=== PATIENT | male | born 1960 | race Caucasian/White ===

== ENCOUNTER 2021-08-21 17:07 | Emergency (ER) | payer MEDICAID, OTHER ==
[~2021-08-21] VITALS: Ht 180.3 cm; Wt 85.5 kg
[2021-08-21] MEDS ORDERED: IBUP200T46 PO (17:15)
[2021-08-21] MEDS ORDERED: SILVER NITRATE APPLICATOR TOP ONE (17:50)
[2021-08-21] MEDS ORDERED: OXYMETAZOLINE 0.05% NASAL SPRAY (AFRIN) ONE (17:50)
[2021-08-21 19:29] VITALS: BP 146/88
[2021-08-22] MEDS ORDERED: AMOX875T2 PO (20:15)
== END 2021-08-21 19:30 | disposition home or self-care (01) ==
LOC: M ED 17:07
DX: R04.0 Epistaxis (principal)

== ENCOUNTER 2021-08-22 17:37 | Emergency (ER) | payer OTHER ==
[~2021-08-22] VITALS: Ht 180.3 cm; Wt 84.1 kg
[~2021-08-22 17:37] MED LIST: IBUP200T46 PO
[2021-08-22 20:15] VITALS: BP 142/86
[2021-08-22] MEDS ORDERED: AMOX875T2 PO (20:15)
== END 2021-08-22 20:22 | disposition home or self-care (01) ==
LOC: M ED 17:37
DX: R04.0 Epistaxis (principal); F17.210 Nicotine dependence, cigarettes, uncomplicated

== ENCOUNTER → 2021-09-03 | Outpatient (REF) | payer OTHER ==
[~2021-09-03] MED LIST changes: +AMOX875T2 PO
[2021-09-03 13:00] LABS: BASO # 0.1 10^3/uL (0.0-0.2); BASO % 0.5 % (0.0-1.0); EOS # 0.4 10^3/uL (0.0-0.5); EOS % 3.3 % (0.0-3.0); HEMATOCRIT 40.9 % (42.0-52.0); HEMOGLOBIN 13.4 g/dl (13.5-17.5); LYMPH # 1.7 10^3/uL (1.5-5.0); LYMPH % 15.6 % (24.0-44.0); MEAN CORPUSCULAR HEMOGLOBIN 29.1 pg (27.0-33.0); MEAN CORPUSCULAR HGB CONC 32.8 g/dl (32.0-36.5); MEAN CORPUSCULAR VOLUME 88.9 fl (80.0-96.0); MONO # 0.9 10^3/uL (0.0-0.8); NEUTROPHILS % 72.2 % (36.0-66.0); PLATELET COUNT, AUTOMATED 517 10^3/uL (150-450); WHITE BLOOD COUNT 11.1 10^3/uL (4.0-10.0)
[2021-09-03 13:07] LABS: ALBUMIN 2.9 GM/DL (3.2-5.2); ALT/SGPT 26 U/L (12-78); BILIRUBIN,TOTAL 0.2 MG/DL (0.2-1.0); BLOOD UREA NITROGEN 10 MG/DL (7-18); CALCIUM LEVEL 9.4 MG/DL (8.8-10.2); CARBON DIOXIDE LEVEL 28 MEQ/L (21-32); CHLORIDE LEVEL 99 MEQ/L (98-107); CHOLESTEROL LEVEL 194 MG/DL (<200); CHOLESTEROL RISK RATIO 5.705 (<5); CREATININE FOR GFR 0.74 MG/DL (0.70-1.30); GLOMERULAR FILTRATION RATE > 60.0 (>49); GLUCOSE, FASTING 104 MG/DL (70-100); HDL CHOLESTEROL 34 MG/DL (>40); LDL CHOLESTEROL 137 MG/DL (<100); MAGNESIUM LEVEL 2.5 MG/DL (1.8-2.4); NON-HDL-C 160 MG/DL; SODIUM LEVEL 134 MEQ/L (136-145); TOTAL PROTEIN 7.3 GM/DL (6.4-8.2); TRIGLYCERIDES LEVEL 116 MG/DL (<150)
== END ==
LOC: M SFHCADAM 09:33
PROVIDERS: ATTEND Physician Assistant
DX: M79.661 Pain in right lower leg (principal); R04.0 Epistaxis; F17.211 Nicotine dependence, cigarettes, in remission; Z12.5 Encounter for screening for malignant neoplasm of prostate; Z12.11 Encounter for screening for malignant neoplasm of colon; Z13.220 Encounter for screening for lipoid disorders

== ENCOUNTER → 2021-09-03 | Outpatient (CLI) | payer OTHER | LOC: M WHC 15:29 | PROVIDERS: ATTEND Physician Assistant | DX: M79.661 Pain in right lower leg (principal) ==

== ENCOUNTER 2021-10-05 19:08 | Inpatient (IN) | payer OTHER ==
[~2021-10-05] VITALS: Ht 182.9 cm; Wt 96.2 kg
[2021-10-05 19:47] LABS: BASO # 0.1 10^3/uL (0.0-0.2); BASO % 0.5 % (0.0-1.0); EOS # 0.6 10^3/uL (0.0-0.5); HEMATOCRIT 32.4 % (42.0-52.0); LYMPH # 1.5 10^3/uL (1.5-5.0); LYMPH % 9.8 % (24.0-44.0); MEAN CORPUSCULAR HEMOGLOBIN 27.3 pg (27.0-33.0); MEAN CORPUSCULAR VOLUME 80.4 fl (80.0-96.0); MONO # 1.1 10^3/uL (0.0-0.8); NEUTROPHILS # 11.8 10^3/uL (1.5-8.5); NEUTROPHILS % 78.2 % (36.0-66.0); PLATELET COUNT, AUTOMATED 707 10^3/uL (150-450); RED BLOOD COUNT 4.03 10^6/uL (4.30-6.10); WHITE BLOOD COUNT 15.1 10^3/uL (4.0-10.0)
[2021-10-05] MEDS ORDERED: hydrALAZINE 20MG/ML 1ML VIAL (J0360 PER 20MG) IV STA (20:07)
[2021-10-05 20:21] LABS: AMPHETAMINES LEVEL URINE NEGATIVE (NEGATIVE); BARBITURATES URINE NEGATIVE (NEGATIVE); BENZODIAZEPINES URINE NEGATIVE (NEGATIVE); CANNABINOIDS URINE NEGATIVE (NEGATIVE); COCAINE METABOLITE URINE NEGATIVE (NEGATIVE); METHADONE URINE NEGATIVE (NEGATIVE); OPIATES URINE NEGATIVE (NEGATIVE); PHENCYCLIDINE URINE NEGATIVE (NEGATIVE)
[2021-10-05 20:24] LABS: CK-MB VALUE MASS < 1.0 NG/ML (<3.6); CPK CREATINE PHOSPHOKINASE 14 U/L (39-308); MB/CK RELATIVE INDEX 7.14 (< OR =4)
[2021-10-05 20:30] LABS: ALBUMIN 2.1 GM/DL (3.2-5.2); ALT/SGPT 25 U/L (12-78); BILIRUBIN,DIRECT 0.2 MG/DL (0.0-0.2); BILIRUBIN,TOTAL 0.4 MG/DL (0.2-1.0); BLOOD UREA NITROGEN 36 MG/DL (7-18); CALCIUM LEVEL 9.2 MG/DL (8.8-10.2); CARBON DIOXIDE LEVEL 21 MEQ/L (21-32); CHLORIDE LEVEL 87 MEQ/L (98-107); CREATININE FOR GFR 2.64 MG/DL (0.70-1.30); ETHYL ALCOHOL (ETHANOL) < 0.003 % (0.000-0.010); GLOMERULAR FILTRATION RATE 26.5 (>49); GLUCOSE, FASTING 112 MG/DL (70-100); SALICYLATE LEVEL < 1.7 MG/DL (5.0-30.0); SODIUM LEVEL 123 MEQ/L (136-145); TOTAL PROTEIN 6.7 GM/DL (6.4-8.2)
[2021-10-05] MEDS ORDERED: LORazepam 2 MG/ML VIAL IV STA ×2 (21:42→22:38)
[2021-10-05] MEDS ORDERED: MIDAZOLAM INJ 2MG/2ML VIAL (J2250 PER 1MG) IV STA (22:20)
[2021-10-05 22:36] LABS: ACETAMINOPHEN LEVEL 13.7 UG/ML (0.0-30.0)
[2021-10-05] MEDS ORDERED: MIDAZOLAM INJ 2MG/2ML VIAL (J2250 PER 1MG) IV ONE ×2 (22:50)
[2021-10-05] MEDS ORDERED: NS 1,000 ML IV ONE (22:50)
[2021-10-06] VITALS (15 sets, daily range): BP systolic 132–182; BP diastolic 63–93
[2021-10-06] MEDS ORDERED: TIZA2TA PO (00:18)
[2021-10-06] MEDS ORDERED: NS 1,000 ML IV SCH ×2 (00:20→05:25)
[2021-10-06] MEDS ORDERED: HOME MED LIST COMPLETE! XX SCH (00:50)
[2021-10-06 00:57] LABS: FREE T4 1.57 NG/DL (0.76-1.46)
[2021-10-06 01:26] LABS: CREATININE FOR GFR 2.55 MG/DL (0.70-1.30); GLOMERULAR FILTRATION RATE 27.5 (>49); POTASSIUM SERUM 4.5 MEQ/L (3.5-5.1)
[2021-10-06] MEDS: PANTOPRAZOLE 40MG VIAL IV SCH ×2 (01:46→13:09)
[2021-10-06 04:03] LABS: CREATININE,RANDOM URINE 67.3 MG/DL
[2021-10-06 05:14] LABS: CALCIUM LEVEL 8.8 MG/DL (8.8-10.2); CREATININE FOR GFR 2.54 MG/DL (0.70-1.30); GLOMERULAR FILTRATION RATE 27.7 (>49); POTASSIUM SERUM 4.9 MEQ/L (3.5-5.1)
[2021-10-06] MEDS: HEPARIN SOD (PORCINE) 5000UNITS/ML 1ML VIAL/SYRINGE SC SCH ×3 (05:38→22:00)
[2021-10-06 10:52] LABS: URIC ACID 4.7 MG/DL (3.5-7.2)
[2021-10-06] MEDS: NS 1,000 ML IV SCH ×2 (13:09→23:23)
[2021-10-06 14:24] LABS: ALBUMIN 1.9 GM/DL (3.2-5.2); CREATININE FOR GFR 2.54 MG/DL (0.70-1.30); GLOMERULAR FILTRATION RATE 27.7 (>49); PHOSPHORUS LEVEL 4.5 MG/DL (2.5-4.9); POTASSIUM SERUM 5.1 MEQ/L (3.5-5.1)
[2021-10-06 14:47] LABS: APPEARANCE, URINE CLEAR (CLEAR); BACTERIA, URINE AUTO 1+ (NEGATIVE); BILIRUBIN, URINE AUTO NEGATIVE (NEGATIVE); BLOOD, URINE BLOOD 2+ (NEGATIVE); COLOR, URINE YELLOW (YELLOW); GLUCOSE, URINE (UA) AUTO NEGATIVE (NEGATIVE); KETONE, URINE AUTO NEGATIVE (NEGATIVE); LEUKOCYTE ESTERASE, URINE AUTO TRACE (NEGATIVE); NITRITE, URINE AUTO NEGATIVE (NEGATIVE); PROTEIN, URINE AUTO 2+ mg/dL (NEGATIVE); RBC, URINE AUTO 17 /HPF (0-3); SPECIFIC GRAVITY URINE AUTO 1.013 (1.002-1.035); SQUAMOUS EPITHELIAL CELL UR AU 0 /HPF (0-6); UROBILINOGEN, URINE AUTO 0.2 mg/dL (0.0-2.0); WBC, URINE AUTO 9 /HPF (0-3)
[2021-10-06 15:03] LABS: TOTAL PROTEIN,RANDOM URINE 120.8 MG/DL (0.0-12.0)
[2021-10-07] VITALS (12 sets, daily range): BP systolic 136–174; BP diastolic 63–86
[2021-10-07] MEDS: PANTOPRAZOLE 40MG VIAL IV SCH ×3 (00:25→23:56)
[2021-10-07 05:11] LABS: BASO # 0.1 10^3/uL (0.0-0.2); BASO % 0.4 % (0.0-1.0); EOS # 0.2 10^3/uL (0.0-0.5); EOS % 1.2 % (0.0-3.0); HEMATOCRIT 25.6 % (42.0-52.0); LYMPH # 1.1 10^3/uL (1.5-5.0); LYMPH % 6.5 % (24.0-44.0); MEAN CORPUSCULAR HEMOGLOBIN 27.7 pg (27.0-33.0); MEAN CORPUSCULAR HGB CONC 33.2 g/dl (32.0-36.5); MEAN CORPUSCULAR VOLUME 83.4 fl (80.0-96.0); MONO # 1.2 10^3/uL (0.0-0.8); MONO % 7.2 % (2.0-8.0); NEUTROPHILS # 13.7 10^3/uL (1.5-8.5); NEUTROPHILS % 84.1 % (36.0-66.0); PLATELET COUNT, AUTOMATED 573 10^3/uL (150-450); RED BLOOD COUNT 3.07 10^6/uL (4.30-6.10); WHITE BLOOD COUNT 16.3 10^3/uL (4.0-10.0)
[2021-10-07 05:12] LABS: HEMOGLOBIN 8.5 g/dl (13.5-17.5)
[2021-10-07 05:29] LABS: CREATININE FOR GFR 2.45 MG/DL (0.70-1.30); GLOMERULAR FILTRATION RATE 28.9 (>49); MAGNESIUM LEVEL 1.7 MG/DL (1.8-2.4); PHOSPHORUS LEVEL 3.6 MG/DL (2.5-4.9)
[2021-10-07] MEDS: HEPARIN SOD (PORCINE) 5000UNITS/ML 1ML VIAL/SYRINGE SC SCH ×3 (05:48→21:36)
[2021-10-07] MEDS: NS 1,000 ML IV SCH (07:57)
[2021-10-07] MEDS ORDERED: TOLVAPTAN 15 MG TAB (SAMSCA) PO ONE ×2 (10:00→22:00)
[2021-10-07] MEDS: amLODIPine 5 MG TAB PO SCH (17:40)
[2021-10-07] MEDS: SUCRALFATE 1 GM TAB PO SCH ×2 (17:40→21:35)
[2021-10-07 19:40] LABS: CALCIUM LEVEL 8.5 MG/DL (8.8-10.2); CREATININE FOR GFR 2.56 MG/DL (0.70-1.30); FREE T3 1.5 PG/ML (2.2-4.0); FREE T4 1.18 NG/DL (0.76-1.46); GLOMERULAR FILTRATION RATE 27.4 (>49); POTASSIUM SERUM 5.1 MEQ/L (3.5-5.1); THYROID STIMULATING HORMONE 2.85 uIU/ML (0.358-3.740)
[2021-10-07] MEDS ORDERED: SODIUM CHLORIDE 1 GM TAB PO SCH (21:00)
[2021-10-07 23:19] LABS: CALCIUM LEVEL 8.5 MG/DL (8.8-10.2); CREATININE FOR GFR 2.44 MG/DL (0.70-1.30); POTASSIUM SERUM 4.8 MEQ/L (3.5-5.1)
[2021-10-08] VITALS (7 sets, daily range): BP systolic 141–169; BP diastolic 68–81
[2021-10-08] MEDS ORDERED: SODIUM CHLORIDE 1 GM TAB PO ONE
[2021-10-08 04:11] LABS: HEMATOCRIT 31.1 % (42.0-52.0); HEMOGLOBIN 10.1 g/dl (13.5-17.5); MEAN CORPUSCULAR HEMOGLOBIN 27.3 pg (27.0-33.0); MEAN CORPUSCULAR HGB CONC 32.5 g/dl (32.0-36.5); MEAN CORPUSCULAR VOLUME 84.1 fl (80.0-96.0); PLATELET COUNT, AUTOMATED 582 10^3/uL (150-450); WHITE BLOOD COUNT 19.4 10^3/uL (4.0-10.0)
[2021-10-08 04:27] LABS: CALCIUM LEVEL 8.3 MG/DL (8.8-10.2); CREATININE FOR GFR 2.52 MG/DL (0.70-1.30); GLOMERULAR FILTRATION RATE 27.9 (>49); POTASSIUM SERUM 5.1 MEQ/L (3.5-5.1)
[2021-10-08] MEDS: HEPARIN SOD (PORCINE) 5000UNITS/ML 1ML VIAL/SYRINGE SC SCH ×3 (05:23→20:42)
[2021-10-08] MEDS: SODIUM BICARBONATE 325 MG TAB PO SCH ×2 (08:24→20:41)
[2021-10-08] MEDS: SUCRALFATE 1 GM TAB PO SCH ×4 (08:24→20:41)
[2021-10-08] MEDS: amLODIPine 5 MG TAB PO SCH (08:24)
[2021-10-08] MEDS: SODIUM CHLORIDE 1 GM TAB PO SCH ×3 (08:25→20:41)
[2021-10-08 08:33] LABS: CALCIUM LEVEL 8.9 MG/DL (8.8-10.2); CREATININE FOR GFR 2.6 MG/DL (0.70-1.30); GLOMERULAR FILTRATION RATE 26.9 (>49); POTASSIUM SERUM 5.3 MEQ/L (3.5-5.1)
[2021-10-08] MEDS ORDERED: ASPIRIN ENTERIC 325 MG TAB PO SCH (09:00)
[2021-10-08 11:00] LABS: CHOLESTEROL RISK RATIO 7.333 (<5)
[2021-10-08] MEDS: PANTOPRAZOLE 40MG VIAL IV SCH (11:53)
[2021-10-08 12:27] LABS: C REACTIVE PROTEIN QUANTITATIV 14.5 MG/DL (0.00-0.30)
[2021-10-08] MEDS ORDERED: PATIROMER SORBITEX CALCIUM 8.4 GM POWDER PACKET (VELTASSA) PO ONE (14:00)
[2021-10-08 14:48] LABS: COMPLEMENT C3 142 MG/DL (90-180); COMPLEMENT C4 28 MG/DL (10-40)
[2021-10-08] MEDS ORDERED: TOLVAPTAN 15 MG TAB (SAMSCA) PO ONE (15:00)
[2021-10-08] MEDS ORDERED: MIDODRINE 5 MG TAB PO SCH (16:00)
[2021-10-08 17:24] LABS: CREATININE FOR GFR 2.68 MG/DL (0.70-1.30); POTASSIUM SERUM 4.5 MEQ/L (3.5-5.1)
[2021-10-08 19:08] LABS: FIBRINOGEN 741 MG/DL (268-480); INR 1.26; PROTHROMBIN TIME 16.2 SECONDS (12.7-14.5)
[2021-10-08 19:17] LABS: CALCIUM LEVEL 7.9 MG/DL (8.8-10.2); CREATININE FOR GFR 2.73 MG/DL (0.70-1.30); GLOMERULAR FILTRATION RATE 25.5 (>49); POTASSIUM SERUM 4.7 MEQ/L (3.5-5.1)
[2021-10-08] MEDS: POLYVINYL ALCOHOL OPHTH SOLN 15 ML(LIQUITEARS) OU SCH (20:41)
[2021-10-08] MEDS: ATORVASTATIN 20 MG TAB PO SCH (20:41)
[2021-10-08] MEDS: LIDOCAINE 5% (LIDODERM) PATCH TD SCH (20:41)
[2021-10-08 20:57] LABS: D-DIMER QUANT > 4000 ng/ml (<500)
[2021-10-09] VITALS (15 sets, daily range): BP systolic 126–153; BP diastolic 71–82
[2021-10-09] MEDS: PANTOPRAZOLE 40MG VIAL IV SCH ×2 (01:54→12:28)
[2021-10-09 05:37] LABS: CALCIUM LEVEL 8.4 MG/DL (8.8-10.2); CREATININE FOR GFR 2.65 MG/DL (0.70-1.30); GLOMERULAR FILTRATION RATE 26.4 (>49)
[2021-10-09 07:44] LABS: BASO # 0.1 10^3/uL (0.0-0.2); BASO % 0.5 % (0.0-1.0); EOS # 0.3 10^3/uL (0.0-0.5); EOS % 1.6 % (0.0-3.0); HEMATOCRIT 28.3 % (42.0-52.0); HEMOGLOBIN 9.4 g/dl (13.5-17.5); LYMPH # 1.1 10^3/uL (1.5-5.0); LYMPH % 6.4 % (24.0-44.0); MEAN CORPUSCULAR HEMOGLOBIN 27.2 pg (27.0-33.0); MEAN CORPUSCULAR HGB CONC 33.2 g/dl (32.0-36.5); MEAN CORPUSCULAR VOLUME 81.8 fl (80.0-96.0); MONO # 1.1 10^3/uL (0.0-0.8); MONO % 6.1 % (2.0-8.0); NEUTROPHILS % 84.8 % (36.0-66.0); PLATELET COUNT, AUTOMATED 633 10^3/uL (150-450); RED BLOOD COUNT 3.46 10^6/uL (4.30-6.10); WHITE BLOOD COUNT 17.6 10^3/uL (4.0-10.0)
[2021-10-09 08:03] LABS: INR 1.14
[2021-10-09 08:04] LABS: PARTIAL THROMBOPLASTIN TIME 36.3 SECONDS (25.9-37.0)
[2021-10-09 08:15] LABS: ERYTHROCYTE SEDIMENTATION RATE 70 mm/hr (0-20)
[2021-10-09 08:19] LABS: CALCIUM LEVEL 8.7 MG/DL (8.8-10.2); CREATININE FOR GFR 2.67 MG/DL (0.70-1.30); GLOMERULAR FILTRATION RATE 26.1 (>49)
[2021-10-09] MEDS ORDERED: LORazepam 2 MG/ML VIAL IV STA (08:39)
[2021-10-09] MEDS ORDERED: ASPIRIN 81 MG CHEW TABLET PO SCH (09:00)
[2021-10-09] MEDS: **NOTE PATIENT COMMENT** MISC XX SCH (09:00)
[2021-10-09] MEDS ORDERED: LIDOCAINE 1% MDV 20ML VIAL As Ordered ONE (09:24)
[2021-10-09] MEDS: SUCRALFATE 1 GM TAB PO SCH ×4 (11:24→20:24)
[2021-10-09] MEDS: POLYVINYL ALCOHOL OPHTH SOLN 15 ML(LIQUITEARS) OU SCH ×4 (11:24→20:25)
[2021-10-09] MEDS: SODIUM CHLORIDE 1 GM TAB PO SCH ×3 (11:24→20:23)
[2021-10-09] MEDS: TOLVAPTAN 15 MG TAB (SAMSCA) PO SCH (11:24)
[2021-10-09] MEDS: SODIUM BICARBONATE 325 MG TAB PO SCH ×2 (11:24→20:23)
[2021-10-09 16:48] LABS: CALCIUM LEVEL 8.5 MG/DL (8.8-10.2); CREATININE FOR GFR 2.75 MG/DL (0.70-1.30); GLOMERULAR FILTRATION RATE 25.3 (>49); POTASSIUM SERUM 4.4 MEQ/L (3.5-5.1)
[2021-10-09] MEDS ORDERED: HEPARIN SOD (PORCINE) 5000UNITS/ML 1ML VIAL/SYRINGE SQ SCH (20:00)
[2021-10-09] MEDS: LIDOCAINE 5% (LIDODERM) PATCH TD SCH (20:23)
[2021-10-09] MEDS: ATORVASTATIN 20 MG TAB PO SCH (20:24)
[2021-10-10] VITALS: BP 134/67
[2021-10-10] MEDS: PANTOPRAZOLE 40MG VIAL IV SCH ×2 (01:48→12:31)
[2021-10-10 04:00] VITALS: BP 131/70
[2021-10-10 05:09] LABS: CALCIUM LEVEL 8.2 MG/DL (8.8-10.2); CREATININE FOR GFR 2.84 MG/DL (0.70-1.30); GLOMERULAR FILTRATION RATE 24.3 (>49)
[2021-10-10] MEDS: HEPARIN SOD (PORCINE) 5000UNITS/ML 1ML VIAL/SYRINGE SQ SCH ×3 (06:00→22:15)
[2021-10-10 07:52] VITALS: BP 141/79
[2021-10-10] MEDS: **NOTE PATIENT COMMENT** MISC XX SCH (08:52)
[2021-10-10] MEDS: SODIUM BICARBONATE 325 MG TAB PO SCH ×2 (08:52→22:18)
[2021-10-10] MEDS: TOLVAPTAN 15 MG TAB (SAMSCA) PO SCH (08:52)
[2021-10-10] MEDS: SODIUM CHLORIDE 1 GM TAB PO SCH ×3 (08:52→22:17)
[2021-10-10] MEDS: SUCRALFATE 1 GM TAB PO SCH ×4 (08:53→22:18)
[2021-10-10] MEDS: POLYVINYL ALCOHOL OPHTH SOLN 15 ML(LIQUITEARS) OU SCH ×4 (08:54→22:14)
[2021-10-10] MEDS: ASPIRIN 81 MG CHEW TABLET PO SCH (09:41)
[2021-10-10 12:30] VITALS: BP 126/69
[2021-10-10] MEDS ORDERED: CETACAINE SPRAY 5GM As Ordered ONE ×2 (14:24→15:13)
[2021-10-10] MEDS ORDERED: LIDOCAINE VISCOUS 2% SOLN 15ML UDC As Ordered ONE (14:24)
[2021-10-10] MEDS ORDERED: MIDAZOLAM INJ 2MG/2ML VIAL (J2250 PER 1MG) As Ordered ONE ×2 (14:25→14:26)
[2021-10-10] MEDS ORDERED: NS 1,000 ML IV SCH (14:30)
[2021-10-10 15:47] VITALS: BP 118/57
[2021-10-10 22:00] VITALS: BP 131/80
[2021-10-10] MEDS: LIDOCAINE 5% (LIDODERM) PATCH TD SCH (22:14)
[2021-10-10] MEDS: ATORVASTATIN 20 MG TAB PO SCH (22:17)
[2021-10-11] MEDS: PANTOPRAZOLE 40MG VIAL IV SCH ×2 (01:48→12:56)
[2021-10-11] MEDS: HEPARIN SOD (PORCINE) 5000UNITS/ML 1ML VIAL/SYRINGE SQ SCH ×3 (06:27→21:29)
[2021-10-11 06:58] LABS: BASO # 0.1 10^3/uL (0.0-0.2); BASO % 0.5 % (0.0-1.0); EOS # 0.5 10^3/uL (0.0-0.5); EOS % 2.3 % (0.0-3.0); HEMATOCRIT 27.8 % (42.0-52.0); HEMOGLOBIN 9.2 g/dl (13.5-17.5); LYMPH # 1.1 10^3/uL (1.5-5.0); LYMPH % 5.5 % (24.0-44.0); MEAN CORPUSCULAR HEMOGLOBIN 27.2 pg (27.0-33.0); MEAN CORPUSCULAR HGB CONC 33.1 g/dl (32.0-36.5); MEAN CORPUSCULAR VOLUME 82.2 fl (80.0-96.0); MONO # 1.2 10^3/uL (0.0-0.8); NEUTROPHILS % 85.1 % (36.0-66.0); PLATELET COUNT, AUTOMATED 687 10^3/uL (150-450); RED BLOOD COUNT 3.38 10^6/uL (4.30-6.10)
[2021-10-11 07:19] LABS: ERYTHROCYTE SEDIMENTATION RATE 68 mm/hr (0-20)
[2021-10-11 07:25] LABS: C REACTIVE PROTEIN QUANTITATIV 10.1 MG/DL (0.00-0.30); CALCIUM LEVEL 7.6 MG/DL (8.8-10.2); CREATININE FOR GFR 3.33 MG/DL (0.70-1.30); GLOMERULAR FILTRATION RATE 20.2 (>49); POTASSIUM SERUM 4.5 MEQ/L (3.5-5.1)
[2021-10-11] MEDS ORDERED: LORazepam 2 MG/ML VIAL IV STA (08:23)
[2021-10-11] MEDS: TOLVAPTAN 15 MG TAB (SAMSCA) PO SCH ×2 (09:00→13:12)
[2021-10-11] MEDS: **NOTE PATIENT COMMENT** MISC XX SCH (09:00)
[2021-10-11] MEDS: SODIUM BICARBONATE 325 MG TAB PO SCH ×2 (12:10→21:30)
[2021-10-11] MEDS: SODIUM CHLORIDE 1 GM TAB PO SCH ×3 (12:10→21:30)
[2021-10-11] MEDS: ASPIRIN 81 MG CHEW TABLET PO SCH (12:11)
[2021-10-11] MEDS: SUCRALFATE 1 GM TAB PO SCH ×4 (12:11→21:29)
[2021-10-11] MEDS: POLYVINYL ALCOHOL OPHTH SOLN 15 ML(LIQUITEARS) OU SCH ×4 (12:11→21:30)
[2021-10-11 14:00] VITALS: BP 140/75
[2021-10-11 15:46] LABS: CREATININE FOR GFR 3.47 MG/DL (0.70-1.30); GLOMERULAR FILTRATION RATE 19.3 (>49); POTASSIUM SERUM 4.4 MEQ/L (3.5-5.1)
[2021-10-11 21:16] VITALS: BP 147/82
[2021-10-11] MEDS: ATORVASTATIN 20 MG TAB PO SCH (21:29)
[2021-10-11] MEDS: LIDOCAINE 5% (LIDODERM) PATCH TD SCH (21:30)
[2021-10-12] MEDS: PANTOPRAZOLE 40MG VIAL IV SCH ×2 (01:33→12:53)
[2021-10-12] MEDS: HEPARIN SOD (PORCINE) 5000UNITS/ML 1ML VIAL/SYRINGE SQ SCH ×3 (05:42→20:32)
[2021-10-12 06:00] VITALS: BP_SYST 110; BP_SYST 141; BP_DIAS 72; BP_DIAS 80
[2021-10-12 06:43] LABS: CALCIUM LEVEL 8.3 MG/DL (8.8-10.2); CREATININE FOR GFR 3.64 MG/DL (0.70-1.30); GLOMERULAR FILTRATION RATE 18.3 (>49)
[2021-10-12] MEDS: cefTRIAXone SOD 1 GM in D5W MINI-BAG PLUS 50 ML IV SCH (09:39)
[2021-10-12] MEDS: SUCRALFATE 1 GM TAB PO SCH ×4 (09:40→20:32)
[2021-10-12] MEDS: ASPIRIN 81 MG CHEW TABLET PO SCH (09:40)
[2021-10-12] MEDS: POLYVINYL ALCOHOL OPHTH SOLN 15 ML(LIQUITEARS) OU SCH ×4 (09:40→20:32)
[2021-10-12] MEDS: SODIUM CHLORIDE 1 GM TAB PO SCH (09:40)
[2021-10-12] MEDS: SODIUM BICARBONATE 325 MG TAB PO SCH ×2 (09:40→20:30)
[2021-10-12] MEDS: **NOTE PATIENT COMMENT** MISC XX SCH (09:41)
[2021-10-12] MEDS: TOLVAPTAN 15 MG TAB (SAMSCA) PO SCH (09:54)
[2021-10-12] MEDS: methylPREDNISolone 1,000 MG, VIAL MATE ADAPTER 1 EACH in NS 250 ML IV SCH (12:53)
[2021-10-12 14:00] VITALS: BP 156/77
[2021-10-12 15:43] VITALS: BP 144/79
[2021-10-12] MEDS: ATORVASTATIN 20 MG TAB PO SCH (20:32)
[2021-10-12] MEDS: LIDOCAINE 5% (LIDODERM) PATCH TD SCH (20:33)
[2021-10-12 22:00] VITALS: BP 144/84
[2021-10-13] MEDS: PANTOPRAZOLE 40MG VIAL IV SCH ×2 (00:38→13:51)
[2021-10-13] MEDS: HEPARIN SOD (PORCINE) 5000UNITS/ML 1ML VIAL/SYRINGE SQ SCH ×3 (05:21→21:39)
[2021-10-13 06:00] VITALS: BP 146/76
[2021-10-13] MEDS: SUCRALFATE 1 GM TAB PO SCH ×4 (07:30→20:27)
[2021-10-13] MEDS: **NOTE PATIENT COMMENT** MISC XX SCH (09:00)
[2021-10-13] MEDS: POLYVINYL ALCOHOL OPHTH SOLN 15 ML(LIQUITEARS) OU SCH ×4 (10:02→20:27)
[2021-10-13] MEDS: SODIUM BICARBONATE 325 MG TAB PO SCH ×2 (10:03→20:27)
[2021-10-13] MEDS: ASPIRIN 81 MG CHEW TABLET PO SCH (10:03)
[2021-10-13] MEDS: TOLVAPTAN 15 MG TAB (SAMSCA) PO SCH (10:03)
[2021-10-13] MEDS: cefTRIAXone SOD 1 GM in D5W MINI-BAG PLUS 50 ML IV SCH (10:03)
[2021-10-13] MEDS: methylPREDNISolone 1,000 MG, VIAL MATE ADAPTER 1 EACH in NS 250 ML IV SCH (13:52)
[2021-10-13 14:00] VITALS: BP 149/77
[2021-10-13] MEDS ORDERED: GI COCKTAIL 50ML BTL(HYOSCYAMINE/MAALOX/LIDOCAINE VISCOUS)(1:3:1) PO PRN (16:20)
[2021-10-13] MEDS ORDERED: GI COCKTAIL 50ML BTL(HYOSCYAMINE/MAALOX/LIDOCAINE VISCOUS)(1:3:1) PO ONE (17:00)
[2021-10-13 20:25] VITALS: BP 138/72
[2021-10-13] MEDS: ATORVASTATIN 20 MG TAB PO SCH (20:27)
[2021-10-13] MEDS: LIDOCAINE 5% (LIDODERM) PATCH TD SCH (20:27)
[2021-10-13 23:10] LABS: ANTI DS-DNA AB Negative (Negative); ANTI SMITH(Sm) AB <20 Units (<20); ANTINUCLEAR ANTIBODIES DIRECT Negative (Negative)
[2021-10-14] MEDS: PANTOPRAZOLE 40MG VIAL IV SCH ×2 (02:02→11:55)
[2021-10-14] MEDS: HEPARIN SOD (PORCINE) 5000UNITS/ML 1ML VIAL/SYRINGE SQ SCH ×3 (05:28→20:42)
[2021-10-14 06:24] VITALS: BP 148/84
[2021-10-14 06:37] LABS: CALCIUM LEVEL 8.6 MG/DL (8.8-10.2); CREATININE FOR GFR 4.13 MG/DL (0.70-1.30); GLOMERULAR FILTRATION RATE 15.8 (>49); MAGNESIUM LEVEL 2.6 MG/DL (1.8-2.4); PHOSPHORUS LEVEL 4.8 MG/DL (2.5-4.9); POTASSIUM SERUM 4.3 MEQ/L (3.5-5.1)
[2021-10-14] MEDS: TOLVAPTAN 15 MG TAB (SAMSCA) PO SCH (08:20)
[2021-10-14] MEDS: SODIUM BICARBONATE 325 MG TAB PO SCH ×2 (08:20→20:41)
[2021-10-14] MEDS: ASPIRIN 81 MG CHEW TABLET PO SCH (08:20)
[2021-10-14] MEDS: SUCRALFATE 1 GM TAB PO SCH ×4 (08:21→20:41)
[2021-10-14] MEDS: POLYVINYL ALCOHOL OPHTH SOLN 15 ML(LIQUITEARS) OU SCH ×4 (08:21→20:41)
[2021-10-14] MEDS: **NOTE PATIENT COMMENT** MISC XX SCH (08:31)
[2021-10-14 10:59] LABS: HEPATITIS B CORE ANTIBODY IGM NEGATIVE (NEGATIVE); HEPATITIS B SURFACE ANTIGEN NEGATIVE (NEGATIVE); HEPATITIS C VIRUS ABY INDEX 0.1 INDEX (<0.8); HIV 1&2 SCREEN CENTAUR NEGATIVE (NEGATIVE)
[2021-10-14] MEDS: methylPREDNISolone 1,000 MG, VIAL MATE ADAPTER 1 EACH in NS 250 ML IV SCH (11:54)
[2021-10-14 14:00] VITALS: BP 146/80
[2021-10-14] MEDS: ATORVASTATIN 20 MG TAB PO SCH (20:41)
[2021-10-14] MEDS: LIDOCAINE 5% (LIDODERM) PATCH TD SCH (20:42)
[2021-10-14 22:00] VITALS: BP 150/78
[2021-10-15] VITALS (14 sets, daily range): BP systolic 119–164; BP diastolic 60–84
[2021-10-15] MEDS: PANTOPRAZOLE 40MG VIAL IV SCH ×2 (01:16→12:41)
[2021-10-15] MEDS: HEPARIN SOD (PORCINE) 5000UNITS/ML 1ML VIAL/SYRINGE SQ SCH ×3 (06:21→20:26)
[2021-10-15 06:33] LABS: CALCIUM LEVEL 8.3 MG/DL (8.8-10.2); CREATININE FOR GFR 4.04 MG/DL (0.70-1.30); GLOMERULAR FILTRATION RATE 16.2 (>49); MAGNESIUM LEVEL 2.4 MG/DL (1.8-2.4); PHOSPHORUS LEVEL 5.1 MG/DL (2.5-4.9); POTASSIUM SERUM 4.2 MEQ/L (3.5-5.1)
[2021-10-15] MEDS ORDERED: diphenhydrAMINE 50MG/ML VIAL (J1200) IV PRN (07:01)
[2021-10-15] MEDS ORDERED: methylPREDNISolone 125MG 2ML VIAL IV PRN (07:01)
[2021-10-15] MEDS ORDERED: ALBUTEROL SULFATE 2.5 MG/0.5 ML INH NEB SOLN INH PRN (07:01)
[2021-10-15] MEDS ORDERED: EPINEPHrine INJ 1 MG/ML 1ML AMP IM PRN (07:01)
[2021-10-15] MEDS: POLYVINYL ALCOHOL OPHTH SOLN 15 ML(LIQUITEARS) OU SCH ×4 (08:31→20:25)
[2021-10-15] MEDS: SUCRALFATE 1 GM TAB PO SCH ×4 (08:31→20:25)
[2021-10-15] MEDS: ASPIRIN 81 MG CHEW TABLET PO SCH (08:31)
[2021-10-15] MEDS: **NOTE PATIENT COMMENT** MISC XX SCH (08:31)
[2021-10-15] MEDS: SODIUM BICARBONATE 325 MG TAB PO SCH ×2 (08:31→20:25)
[2021-10-15] MEDS ORDERED: predniSONE 20 MG TAB PO SCH (09:00)
[2021-10-15] MEDS ORDERED: TOLVAPTAN 15 MG TAB (SAMSCA) PO SCH (09:00)
[2021-10-15 10:22] LABS: HEMATOCRIT 25.7 % (42.0-52.0); HEMOGLOBIN 8.4 g/dl (13.5-17.5); MEAN CORPUSCULAR HEMOGLOBIN 27.3 pg (27.0-33.0); MEAN CORPUSCULAR HGB CONC 32.7 g/dl (32.0-36.5); MEAN CORPUSCULAR VOLUME 83.4 fl (80.0-96.0); PLATELET COUNT, AUTOMATED 814 10^3/uL (150-450); RED BLOOD COUNT 3.08 10^6/uL (4.30-6.10); WHITE BLOOD COUNT 12.1 10^3/uL (4.0-10.0)
[2021-10-15] MEDS ORDERED: diphenhydrAMINE 50MG/ML VIAL (J1200) IV ONE (10:30)
[2021-10-15] MEDS ORDERED: ACETAMINOPHEN TAB 650MG DOSE (2X325MG) PO ONE (10:30)
[2021-10-15] MEDS ORDERED: methylPREDNISolone 125MG 2ML VIAL IV ONE (10:30)
[2021-10-15] MEDS ORDERED: riTUXimab 1,000 MG in NS 900 ML IV ONE (11:00)
[2021-10-15] MEDS ORDERED: NS 1,000 ML IV SCH (11:00)
[2021-10-15 11:08] LABS: ANTI THROMBIN 3 ANTIGEN IMMUNO 87 % (72-124); ANTI THROMBIN 3 FUNCT ACTIVITY 90 % (75-135); PROTEIN C FUNCTIONAL ACTIVITY 132 % (73-180); PROTEIN S FUNCTIONAL ACTIVITY 68 % (63-140)
[2021-10-15] MEDS: ATOVAQUONE SUSP 750MG/5ML 210 ML BTL PO SCH (14:32)
[2021-10-15] MEDS: ATORVASTATIN 20 MG TAB PO SCH (20:25)
[2021-10-15] MEDS: LIDOCAINE 5% (LIDODERM) PATCH TD SCH (20:25)
[2021-10-16] MEDS: PANTOPRAZOLE 40MG VIAL IV SCH ×2 (01:58→12:56)
[2021-10-16 05:35] VITALS: BP 141/77
[2021-10-16] MEDS: HEPARIN SOD (PORCINE) 5000UNITS/ML 1ML VIAL/SYRINGE SQ SCH ×3 (05:57→20:42)
[2021-10-16 06:02] LABS: HEMATOCRIT 23.3 % (42.0-52.0); HEMOGLOBIN 7.6 g/dl (13.5-17.5); MEAN CORPUSCULAR HEMOGLOBIN 27.7 pg (27.0-33.0); MEAN CORPUSCULAR HGB CONC 32.6 g/dl (32.0-36.5); PLATELET COUNT, AUTOMATED 735 10^3/uL (150-450); RED BLOOD COUNT 2.74 10^6/uL (4.30-6.10); WHITE BLOOD COUNT 11.7 10^3/uL (4.0-10.0)
[2021-10-16 06:33] LABS: ALBUMIN 1.7 GM/DL (3.2-5.2); BILIRUBIN,TOTAL 0.6 MG/DL (0.2-1.0); CALCIUM LEVEL 7.9 MG/DL (8.8-10.2); CREATININE FOR GFR 3.76 MG/DL (0.70-1.30); GLOMERULAR FILTRATION RATE 17.6 (>49); MAGNESIUM LEVEL 2.2 MG/DL (1.8-2.4); PHOSPHORUS LEVEL 4.4 MG/DL (2.5-4.9); POTASSIUM SERUM 4.2 MEQ/L (3.5-5.1); TOTAL PROTEIN 5.4 GM/DL (6.4-8.2)
[2021-10-16] MEDS: SUCRALFATE 1 GM TAB PO SCH ×4 (09:07→20:41)
[2021-10-16] MEDS: predniSONE 20 MG TAB PO SCH (09:08)
[2021-10-16] MEDS: ATOVAQUONE SUSP 750MG/5ML 210 ML BTL PO SCH (09:08)
[2021-10-16] MEDS: SODIUM BICARBONATE 325 MG TAB PO SCH ×2 (09:08→20:41)
[2021-10-16] MEDS: ASPIRIN 81 MG CHEW TABLET PO SCH (09:08)
[2021-10-16] MEDS: POLYVINYL ALCOHOL OPHTH SOLN 15 ML(LIQUITEARS) OU SCH ×4 (09:09→20:42)
[2021-10-16] MEDS: **NOTE PATIENT COMMENT** MISC XX SCH (09:10)
[2021-10-16 10:08] LABS: DRVV SCREEN 50.1 SEC
[2021-10-16 10:17] LABS: PTT LUPUS TYPE ANTICOAG SCREEN 1.3 (0-1.2)
[2021-10-16 10:25] LABS: LUPUS CONFIRM RATIO 1.2
[2021-10-16 10:40] LABS: NORMALIZED RATIO 1.08 (0.00-1.20)
[2021-10-16 14:00] VITALS: BP 143/66
[2021-10-16] MEDS: ATORVASTATIN 20 MG TAB PO SCH (20:41)
[2021-10-16] MEDS: LIDOCAINE 5% (LIDODERM) PATCH TD SCH (20:42)
[2021-10-16 22:00] VITALS: BP 137/65
[2021-10-17] MEDS: PANTOPRAZOLE 40MG VIAL IV SCH ×2 (00:44→12:31)
[2021-10-17 06:00] VITALS: BP 142/76
[2021-10-17] MEDS: HEPARIN SOD (PORCINE) 5000UNITS/ML 1ML VIAL/SYRINGE SQ SCH ×2 (06:15→14:53)
[2021-10-17 06:28] LABS: MEAN CORPUSCULAR HEMOGLOBIN 26.7 pg (27.0-33.0); MEAN CORPUSCULAR VOLUME 83.3 fl (80.0-96.0); PLATELET COUNT, AUTOMATED 755 10^3/uL (150-450); WHITE BLOOD COUNT 12.6 10^3/uL (4.0-10.0)
[2021-10-17 07:03] LABS: ALBUMIN 1.8 GM/DL (3.2-5.2); BILIRUBIN,TOTAL 0.2 MG/DL (0.2-1.0); CALCIUM LEVEL 8.2 MG/DL (8.8-10.2); CREATININE FOR GFR 3.31 MG/DL (0.70-1.30); GLOMERULAR FILTRATION RATE 20.4 (>49); PHOSPHORUS LEVEL 3.6 MG/DL (2.5-4.9); POTASSIUM SERUM 4.2 MEQ/L (3.5-5.1); TOTAL PROTEIN 5.4 GM/DL (6.4-8.2)
[2021-10-17] MEDS: ATOVAQUONE SUSP 750MG/5ML 210 ML BTL PO SCH (08:12)
[2021-10-17] MEDS: ASPIRIN 81 MG CHEW TABLET PO SCH (08:12)
[2021-10-17] MEDS: SODIUM BICARBONATE 325 MG TAB PO SCH (08:12)
[2021-10-17] MEDS: SUCRALFATE 1 GM TAB PO SCH ×2 (08:12→12:31)
[2021-10-17] MEDS: predniSONE 20 MG TAB PO SCH (08:12)
[2021-10-17] MEDS: **NOTE PATIENT COMMENT** MISC XX SCH (08:13)
[2021-10-17] MEDS: POLYVINYL ALCOHOL OPHTH SOLN 15 ML(LIQUITEARS) OU SCH ×2 (08:13→12:31)
[2021-10-17] MEDS ORDERED: ASPI81CH8 PO (12:44)
[2021-10-17] MEDS ORDERED: SUCR1TA PO (12:44)
[2021-10-17] MEDS ORDERED: SODI325T9 PO (12:44)
[2021-10-17] MEDS ORDERED: POLYOPD OU (12:44)
[2021-10-17] MEDS ORDERED: ATOV5SUS PO (12:44)
[2021-10-17] MEDS ORDERED: PRED20TA PO (12:48)
[2021-10-17 14:00] VITALS: BP 160/88
[2021-10-23 14:18] LABS: ANTI DS-DNA AB NEGATIVE; PR3 ANTIPROTEINASE ANTIBODIES <3.5 U/mL
[2021-10-23 15:08] LABS: ARSENIC BLOOD 2 ug/L (0-9); LEAD BLOOD <1 ug/dL (0-4); MERCURY BLOOD <1.0 ug/L (0.0-14.9)
== END 2021-10-17 15:30 | disposition home or self-care (01) | DRG 52 ==
LOC: M ED 19:08 → EDBD 19:08 → M ED INP 10-06 00:17 → ENRESERV 10-06 00:35 → M ICU 10-06 01:33 → M PCU 10-07 15:40 → M MSPAV 10-10 15:49
PROVIDERS: ADMIT Internal Medicine; ATTEND Internal Medicine
PROC: B246ZZZ Ultrasonography of Right and Left Heart (ICD-10-PCS; 2021-10-08)
PROC: 0TB13ZX Excision of Left Kidney, Percutaneous Approach, Diagnostic (ICD-10-PCS; principal; 2021-10-09 12:00)
DX: G93.41 Metabolic encephalopathy (principal); I63.81 Other cerebral infarction due to occlusion or stenosis of small artery; N18.4 Chronic kidney disease, stage 4 (severe); N17.9 Acute kidney failure, unspecified; M30.0 Polyarteritis nodosa; E87.2 Acidosis; N12 Tubulo-interstitial nephritis, not specified as acute or chronic; E87.1 Hypo-osmolality and hyponatremia; E87.5 Hyperkalemia; F17.210 Nicotine dependence, cigarettes, uncomplicated; R31.9 Hematuria, unspecified; T39.315A Adverse effect of propionic acid derivatives, initial encounter; Z20.822 Contact with and (suspected) exposure to COVID-19; D63.1 Anemia in chronic kidney disease; I12.9 Hypertensive chronic kidney disease with stage 1 through stage 4 chronic kidney disease, or unspecified chronic kidney disease; D72.829 Elevated white blood cell count, unspecified; E86.0 Dehydration; Z79.899 Other long term (current) drug therapy; T42.8X5A Adverse effect of antiparkinsonism drugs and other central muscle-tone depressants, initial encounter; K29.70 Gastritis, unspecified, without bleeding; T38.0X5A Adverse effect of glucocorticoids and synthetic analogues, initial encounter

== ENCOUNTER → 2021-10-24 | Outpatient (REF) | payer OTHER ==
[~2021-10-24] MED LIST changes: +ASPI81CH8 PO; +ATOV5SUS PO; +POLYOPD OU; +PRED20TA PO; +SODI325T9 PO; +SUCR1TA PO; +TIZA2TA PO
[2021-10-24 14:04] LABS: PERCENT SATURATION 7.7 % (19.7-50.0)
[2021-10-24 14:16] LABS: FOLATE 7.8 NG/ML
[2021-10-25 18:09] LABS: FREE KAPPA LIGHT CHAINS SERUM 64.6 mg/L (3.3-19.4); FREE LAMBDA LIGHT CHAINS SERUM 47.4 mg/L (5.7-26.3); KAPPA/LAMBDA RATIO SERUM 1.36 (0.26-1.65)
== END ==
LOC: M SFHCADAM 11:06
PROVIDERS: ATTEND Physician Assistant
DX: N05.9 Unspecified nephritic syndrome with unspecified morphologic changes (principal); D75.839 Thrombocytosis, unspecified; D64.9 Anemia, unspecified

== ENCOUNTER 2021-10-31 09:18 | Outpatient (CLI) | payer OTHER ==
[~2021-10-31] VITALS: Ht 182.9 cm; Wt 96.2 kg
[~2021-10-31 09:18] MED LIST changes: +ACETAMINOPHEN TAB 650MG DOSE (2X325MG) PO ONE; +ALBUTEROL SULFATE 2.5 MG/0.5 ML INH NEB SOLN INH PRN; +EPINEPHrine INJ 1 MG/ML 1ML AMP IM PRN; +NS 1,000 ML IV SCH; +diphenhydrAMINE 50MG/ML VIAL (J1200) IV ONE; +diphenhydrAMINE 50MG/ML VIAL (J1200) IV PRN; +methylPREDNISolone 125MG 2ML VIAL IV ONE; +methylPREDNISolone 125MG 2ML VIAL IV PRN; +riTUXimab 1,000 MG in NS 900 ML IV ONE
[2021-10-31 09:25] VITALS: BP 164/91
[2021-10-31 12:00] VITALS: BP 178/92
[2021-10-31 13:00] VITALS: BP 158/86
[2021-10-31 14:30] VITALS: BP 155/90
== END 2021-10-31 14:30 | disposition home or self-care (01) ==
LOC: M INFU 09:18
PROVIDERS: ATTEND Internal Medicine Nephrology
DX: N05.9 Unspecified nephritic syndrome with unspecified morphologic changes (principal)
CPT/HCPCS: 96365; 96366; 96375; J2930; J9312

== ENCOUNTER 2021-11-14 09:18 | Outpatient (CLI) | payer OTHER ==
[~2021-11-14] VITALS: Ht 180.3 cm; Wt 173.4 kg
[2021-11-14 09:53] VITALS: BP 158/89
[2021-11-14 10:30] VITALS: BP 166/90
[2021-11-14 11:30] VITALS: BP 152/96
[2021-11-14 12:30] VITALS: BP 160/93
[2021-11-14 13:38] VITALS: BP 160/89
== END 2021-11-14 13:45 | disposition home or self-care (01) ==
LOC: M INFU 09:18
PROVIDERS: ATTEND Internal Medicine Nephrology
DX: N05.9 Unspecified nephritic syndrome with unspecified morphologic changes (principal)
CPT/HCPCS: 96365; 96366; 96375; J1200; J2930; J9312

== ENCOUNTER → 2022-02-11 | Outpatient (REF) | payer OTHER ==
[~2022-02-11] MED LIST changes: -ACETAMINOPHEN TAB 650MG DOSE (2X325MG) PO ONE; -ALBUTEROL SULFATE 2.5 MG/0.5 ML INH NEB SOLN INH PRN; -EPINEPHrine INJ 1 MG/ML 1ML AMP IM PRN; -NS 1,000 ML IV SCH; -diphenhydrAMINE 50MG/ML VIAL (J1200) IV ONE; -diphenhydrAMINE 50MG/ML VIAL (J1200) IV PRN; -methylPREDNISolone 125MG 2ML VIAL IV ONE; -methylPREDNISolone 125MG 2ML VIAL IV PRN; -riTUXimab 1,000 MG in NS 900 ML IV ONE
[2022-02-14 12:51] LABS: ALBUMIN % 58.3 % (55.8-66.1); ALPHA-1-GLOBULIN % 5.3 % (2.9-4.9); ALPHA-1-GLOBULINS 0.32 GM/DL (0.17-0.41); ALPHA-2-GLOBULINS 1.02 GM/DL (0.42-0.99); BETA-1-GLOBULINS 0.33 GM/DL (0.28-0.60); BETA-1-GLOBULINS % 5.5 % (4.7-7.2); BETA-2-GLOBULINS 0.34 GM/DL (0.19-0.55); BETA-2-GLOBULINS % 5.7 % (3.2-6.5); GAMMA GLOBULIN % 8.2 % (11.1-18.8); GAMMA GLOBULINS 0.49 GM/DL (0.65-1.58)
== END ==
LOC: M SFHCADAM 07:51
PROVIDERS: ATTEND Physician Assistant
DX: D89.89 Other specified disorders involving the immune mechanism, not elsewhere classified (principal)

== ENCOUNTER → 2022-05-08 | Outpatient (REF) | payer OTHER ==
[~2022-05-08] MED LIST changes: +EQL1CAP9 PO; +LOSA25TA13 PO; +PRED5TA PO; +SULF400T14 PO
[2022-05-08 18:11] LABS: CREATININE, URINE 81.6 MG/DL
[2022-05-08 18:27] LABS: MAU/CREAT RATIO 1802.6 MCG/MG (0.0-30.0)
== END ==
LOC: M LAB REF 17:08
PROVIDERS: ATTEND Internal Medicine Nephrology
DX: N18.9 Chronic kidney disease, unspecified (principal)

== ENCOUNTER 2022-05-19 07:23 | Outpatient (CLI) | payer OTHER ==
[~2022-05-19] VITALS: Ht 182.9 cm; Wt 78.0 kg
[2022-05-19] VITALS (7 sets, daily range): BP systolic 141–158; BP diastolic 82–88
[~2022-05-19 07:23] MED LIST changes: +ALBUTEROL SULFATE 2.5MG/0.5ML INH NEB SOLN INH PRN; +EPINEPHrine INJ 1 MG/ML 1ML AMP IM PRN; +diphenhydrAMINE 50MG/ML VIAL IV PRN; +methylPREDNISolone 125MG 2ML VIAL IV PRN
[2022-05-19] MEDS ORDERED: methylPREDNISolone 125MG 2ML VIAL IV ONE (07:30)
[2022-05-19] MEDS ORDERED: riTUXimab (INITIAL INFUSION) IV ONE ×2 (07:30)
[2022-05-19] MEDS ORDERED: NS 1,000 ML IV SCH (07:30)
[2022-05-19] MEDS ORDERED: diphenhydrAMINE 50MG/ML VIAL IV ONE (07:30)
== END 2022-05-19 12:30 | disposition home or self-care (01) ==
LOC: M INFU 07:23
PROVIDERS: ATTEND Internal Medicine Nephrology
DX: N01.7 Rapidly progressive nephritic syndrome with diffuse crescentic glomerulonephritis (principal)
CPT/HCPCS: 96413; 96415; J9312

== ENCOUNTER → 2022-09-16 | Outpatient (REF) | payer OTHER ==
[~2022-09-16] MED LIST changes: -ALBUTEROL SULFATE 2.5MG/0.5ML INH NEB SOLN INH PRN; +ARTIDRO4 OU; -EPINEPHrine INJ 1 MG/ML 1ML AMP IM PRN; -POLYOPD OU; -diphenhydrAMINE 50MG/ML VIAL IV PRN; -methylPREDNISolone 125MG 2ML VIAL IV PRN
[2022-09-16 13:41] LABS: BASO # 0.1 10^3/uL (0.0-0.2); BASO % 0.6 % (0.0-1.0); EOS # 0.2 10^3/uL (0.0-0.5); EOS % 1.5 % (0.0-3.0); HEMATOCRIT 43.4 % (42.0-52.0); LYMPH # 2.9 10^3/uL (1.5-5.0); LYMPH % 22.9 % (24.0-44.0); MEAN CORPUSCULAR HGB CONC 32.3 g/dl (32.0-36.5); MEAN CORPUSCULAR VOLUME 89.9 fl (80.0-96.0); MONO % 8.2 % (2.0-8.0); NEUTROPHILS # 8.4 10^3/uL (1.5-8.5); NEUTROPHILS % 66.3 % (36.0-66.0); PLATELET COUNT, AUTOMATED 427 10^3/uL (150-450); RED BLOOD COUNT 4.83 10^6/uL (4.30-6.10); WHITE BLOOD COUNT 12.7 10^3/uL (4.0-10.0)
[2022-09-16 14:11] LABS: HEMOGLOBIN A1c 5.8 % (4.0-6.0)
[2022-09-16 14:18] LABS: ALBUMIN 3.2 G/DL (3.2-5.2); BILIRUBIN,TOTAL 0.2 MG/DL (0.3-1.2); CALCIUM LEVEL 9.6 MG/DL (8.3-10.6); CHOLESTEROL RISK RATIO 7.16 (<5); CREATININE FOR GFR 1.47 MG/DL (0.70-1.30); FERRITIN 80.2 NG/ML (10.5-307.3); GLOMERULAR FILTRATION RATE 51.8 (>49); HDL CHOLESTEROL 39.9 MG/DL (>40); LDL CHOLESTEROL 200.9 MG/DL (<100); NON-HDL-C 246.1 MG/DL; POTASSIUM SERUM 4.9 MMOL/L (3.5-5.1); THYROID STIMULATING HORMONE 3.185 uIU/ML (0.55-4.78); TOTAL PROTEIN 6.2 G/DL (5.7-8.2)
[2022-09-16 14:19] LABS: FREE T4 1.11 NG/DL (0.89-1.76)
== END ==
LOC: M SFHCADAM 07:42
PROVIDERS: ATTEND Physician Assistant
DX: N05.9 Unspecified nephritic syndrome with unspecified morphologic changes (principal); D75.839 Thrombocytosis, unspecified; D64.9 Anemia, unspecified; E78.00 Pure hypercholesterolemia, unspecified; F17.211 Nicotine dependence, cigarettes, in remission; R73.01 Impaired fasting glucose; Z12.5 Encounter for screening for malignant neoplasm of prostate

== ENCOUNTER → 2022-09-23 | Outpatient (CLI) | payer OTHER | LOC: M RAD 09:01 | PROVIDERS: ATTEND Physician Assistant | DX: Z53.9 Procedure and treatment not carried out, unspecified reason (principal) ==

== ENCOUNTER → 2023-02-11 | Outpatient (REF) | payer OTHER ==
[2023-02-11 18:14] LABS: TOTAL PROTEIN,RANDOM URINE 121.8 MG/DL (0.0-14.0)
[2023-02-11 18:19] LABS: CREATININE,RANDOM URINE 42.7 MG/DL
== END ==
LOC: M LAB REF 17:10
PROVIDERS: ATTEND Internal Medicine Nephrology
DX: R80.9 Proteinuria, unspecified (principal)

== ENCOUNTER → 2023-03-26 | Outpatient (REF) | payer OTHER ==
[2023-03-26 14:54] LABS: ALBUMIN 3.5 G/DL (3.2-5.2); BILIRUBIN,TOTAL 0.3 MG/DL (0.3-1.2); CALCIUM LEVEL 9.6 MG/DL (8.3-10.6); CHOLESTEROL RISK RATIO 4.12 (<5); CREATININE FOR GFR 1.34 MG/DL (0.70-1.30); GLOMERULAR FILTRATION RATE 57.7 (>49); HDL CHOLESTEROL 39.5 MG/DL (>40); LDL CHOLESTEROL 89.5 MG/DL (<100); NON-HDL-C 123.5 MG/DL; POTASSIUM SERUM 5.1 MMOL/L (3.5-5.1); TOTAL PROTEIN 6.5 G/DL (5.7-8.2)
== END ==
LOC: M SFHCADAM 08:20
PROVIDERS: ATTEND Physician Assistant
DX: N05.9 Unspecified nephritic syndrome with unspecified morphologic changes (principal); F17.210 Nicotine dependence, cigarettes, uncomplicated; I63.9 Cerebral infarction, unspecified; E78.00 Pure hypercholesterolemia, unspecified

== ENCOUNTER → 2023-05-21 | Outpatient (CLI) | payer OTHER | LOC: M RAD 12:57 | PROVIDERS: ATTEND Physician Assistant | DX: Z87.891 Personal history of nicotine dependence (principal) ==

== ENCOUNTER → 2023-10-01 | Outpatient (REF) | payer OTHER, MEDICAID ==
[2023-10-01 13:59] LABS: HEMATOCRIT 45.1 % (42.0-52.0); HEMOGLOBIN 14.8 g/dl (13.5-17.5); MEAN CORPUSCULAR HEMOGLOBIN 29.4 pg (27.0-33.0); MEAN CORPUSCULAR HGB CONC 32.8 g/dl (32.0-36.5); MEAN CORPUSCULAR VOLUME 89.5 fl (80.0-96.0); PLATELET COUNT, AUTOMATED 316 10^3/uL (150-450); RED BLOOD COUNT 5.04 10^6/uL (4.30-6.10); WHITE BLOOD COUNT 10.1 10^3/uL (4.0-10.0)
[2023-10-01 14:18] LABS: ALBUMIN 3.5 G/DL (3.2-5.2); BILIRUBIN,TOTAL 0.3 MG/DL (0.3-1.2); CALCIUM LEVEL 9.1 MG/DL (8.3-10.6); POTASSIUM SERUM 4.8 MMOL/L (3.5-5.1); PSA SCREENING 0.79 NG/ML (< 4.00); TOTAL PROTEIN 6.5 G/DL (5.7-8.2)
[2023-10-01 14:31] LABS: HEMOGLOBIN A1c 5.6 % (4.0-6.0)
[2023-10-02 12:33] LABS: CREATININE FOR GFR 1.57 MG/DL (0.70-1.30); GLOMERULAR FILTRATION RATE 47.9 (>49)
== END ==
LOC: M SFHCADAM 08:31
PROVIDERS: ATTEND Physician Assistant
DX: I10 Essential (primary) hypertension (principal); N05.9 Unspecified nephritic syndrome with unspecified morphologic changes; E78.00 Pure hypercholesterolemia, unspecified; F17.210 Nicotine dependence, cigarettes, uncomplicated; Z12.5 Encounter for screening for malignant neoplasm of prostate; R73.03 Prediabetes

== ENCOUNTER → 2023-11-16 | Outpatient (REF) | payer OTHER, MEDICAID ==
[2023-11-16 17:49] LABS: TOTAL PROTEIN,RANDOM URINE 74.8 MG/DL (0.0-14.0)
[2023-11-16 17:54] LABS: CREATININE,RANDOM URINE 72.5 MG/DL
== END ==
LOC: M LAB REF 16:51
PROVIDERS: ATTEND Internal Medicine Nephrology
DX: N01.7 Rapidly progressive nephritic syndrome with diffuse crescentic glomerulonephritis (principal)

== ENCOUNTER → 2024-03-29 | Outpatient (REF) | payer OTHER, MEDICAID ==
[2024-03-29 14:51] LABS: BASO # 0.1 10^3/uL (0.0-0.2); BASO % 0.7 % (0.0-1.0); EOS # 0.3 10^3/uL (0.0-0.5); EOS % 2.2 % (0.0-3.0); HEMATOCRIT 44.2 % (42.0-52.0); HEMOGLOBIN 14.8 g/dl (13.5-17.5); LYMPH # 3.1 10^3/uL (1.5-5.0); LYMPH % 26.3 % (24.0-44.0); MEAN CORPUSCULAR HEMOGLOBIN 30.5 pg (27.0-33.0); MEAN CORPUSCULAR HGB CONC 33.5 g/dl (32.0-36.5); MEAN CORPUSCULAR VOLUME 91.1 fl (80.0-96.0); MONO # 1.2 10^3/uL (0.0-0.8); MONO % 9.8 % (2.0-8.0); NEUTROPHILS # 7.1 10^3/uL (1.5-8.5); NEUTROPHILS % 60.1 % (36.0-66.0); PLATELET COUNT, AUTOMATED 338 10^3/uL (150-450); RED BLOOD COUNT 4.85 10^6/uL (4.30-6.10); WHITE BLOOD COUNT 11.7 10^3/uL (4.0-10.0)
[2024-03-29 15:20] LABS: ALBUMIN 3.5 G/DL (3.2-5.2); BILIRUBIN,TOTAL 0.3 MG/DL (0.3-1.2); CALCIUM LEVEL 9.5 MG/DL (8.3-10.6); CHOLESTEROL RISK RATIO 4.6 (<5); CREATININE FOR GFR 1.49 MG/DL (0.70-1.30); GLOMERULAR FILTRATION RATE 50.9 (>49); HDL CHOLESTEROL 36.7 MG/DL (>40); LDL CHOLESTEROL 100.1 MG/DL (<100); NON-HDL-C 132.3 MG/DL; POTASSIUM SERUM 4.7 MMOL/L (3.5-5.1)
[2024-03-29 16:51] LABS: HEMOGLOBIN A1c 5.6 % (4.0-6.0)
== END ==
LOC: M SFHCADAM 10:22
PROVIDERS: ATTEND Physician Assistant
DX: E78.00 Pure hypercholesterolemia, unspecified (principal); I10 Essential (primary) hypertension; R73.03 Prediabetes

== ENCOUNTER → 2024-05-12 | Outpatient (REF) | payer OTHER, MEDICAID ==
[2024-05-12 19:05] LABS: TOTAL PROTEIN,RANDOM URINE 150.5 MG/DL (0.0-14.0)
== END ==
LOC: M LAB REF 17:12
PROVIDERS: ATTEND Internal Medicine Nephrology
DX: R80.9 Proteinuria, unspecified (principal)

== ENCOUNTER → 2024-07-06 | Outpatient (CLI) | payer OTHER | LOC: M RAD 16:42 | PROVIDERS: ATTEND Physician Assistant | DX: R91.8 Other nonspecific abnormal finding of lung field (principal); F17.210 Nicotine dependence, cigarettes, uncomplicated; J98.11 Atelectasis ==

== ENCOUNTER → 2024-11-03 | Outpatient (REF) | payer OTHER, MEDICAID ==
[2024-11-03 18:31] LABS: ALT/SGPT 25.0 U/L (7.0-40); AST/SGOT 22.0 U/L (<34); CALCIUM LEVEL 9.3 MG/DL (8.3-10.6); CARBON DIOXIDE LEVEL 25.0 MMOL/L (20-31); CHLORIDE LEVEL 99.0 MMOL/L (98-107); CREATININE FOR GFR 1.5 MG/DL (0.70-1.30); GLOMERULAR FILTRATION RATE 52.0 (>49); POTASSIUM SERUM 5.0 MMOL/L (3.5-5.1); SODIUM LEVEL 134.0 MMOL/L (136-145)
[2024-11-03 18:59] LABS: ESTIMATED AVERAGE GLUCOSE 126.0 MG/DL (60-110)
== END ==
LOC: M SFHCADAM 12:06
PROVIDERS: ATTEND Physician Assistant
DX: E78.00 Pure hypercholesterolemia, unspecified (principal); N18.32 Chronic kidney disease, stage 3b

== ENCOUNTER → 2024-12-20 | Outpatient (REF) | payer OTHER, MEDICAID ==
[2024-12-21 18:07] LABS: TOTAL PROTEIN,RANDOM URINE 78.8 MG/DL (0.0-14.0)
== END ==
LOC: M LAB REF 16:56
PROVIDERS: ATTEND Internal Medicine Nephrology
DX: N01.7 Rapidly progressive nephritic syndrome with diffuse crescentic glomerulonephritis (principal)